=== PATIENT | male | born 1960 | race African-American/Black ===

== ENCOUNTER 2019-04-26 10:10 | Emergency (ER) | payer BC ==
[2019-04-26 10:18] VITALS: BP 138/78; PULSE 63; TEMP 98; BMI 26.5
[2019-04-26] MEDS ORDERED: IBUPROFEN 600 MG TABLET (FP) PO ONE ×2 (10:32)
--- NOTE | 2019-04-26 10:53 | PDOC ---
History of Present Illness - General Chief Complaint: Pain, Acute Stated Complaint: injury at work/lt.hip pain Time Seen by Provider: 04/26/19 10:20 History Source: Patient Exam Limitations: Clinical Condition - History of Present Illness Initial Comments: 04/26/19 10:47 Patient with no significant past medical history present with complaint of left lower rib cage pain status post accidentally hitting left side of the rib with a refrigerator door 2 days ago. Patient report pain when he pressed on the left side of lower rib cage or take deep breathing. Patient has not taken anything for pain. Denies shortness of breath, chest pain, vomiting. Patient also report had 1 blood tinged phlegm when he blew his nose a month ago and wants to make sure that is not a problem. Denies any nasal bleeds since then. Denies any other symptoms Is this a multiple visit Asthma Patient?: No Timing/Duration: other (2 days) Past History - Past Medical History Allergies/Adverse Reactions: Allergies Allergy/AdvReac Type Severity Reaction Status Date / Time No Allergy Information Allergy Verified 04/26/19 10:19 Available Home Medications: Ambulatory Orders Ibuprofen 600 mg PO Q8H PRN #20 tablet 04/26/19 COPD: No - Immunization History Immunization Up to Date: No - Psycho Social/Smoking Cessation Hx Smoking History: Never smoked Have you smoked in the past 12 months: No Information on smoking cessation initiated: No Hx Alcohol Use: No Drug/Substance Use Hx: No Review of Systems - Review of Systems Able to Perform ROS?: Yes Is the patient limited [place] proficient: No Constitutional: No: Chills, Fever HEENTM: Yes: Symptoms Reported, See HPI. No: Eye Pain, Blurred Vision, Tearing , Recent change in vision, Double Vision, Cataracts, Ear Pain, Ocular Prothesis , Ear Discharge, Nose Pain, Nose Congestion, Tinnitus, Nose Bleeding, Hearing Loss, Throat Pain, Throat Swelling, Mouth Pain, Dental Problems, Difficulty Swallowing, Mouth Swelling, Other Respiratory: No: Symptoms reported, See HPI, Cough, Orthopnea, Shortness of Breath, SOB with Exertion, SOB at Rest, Stridor, Wheezing, Productive cough, Hemoptysis, Other Cardiac (ROS): No: Symptoms Reported, See HPI, Chest Pain, Edema, Irregular Heart Rate, Lightheadedness, Palpitations, Syncope, Chest Tightness, Other ABD/GI: No: Symptoms Reported, Nausea, Vomiting Musculoskeletal: Yes: Symptoms Reported, See HPI, Muscle Pain (left lower ribcage pain) Integumentary: No: Symptoms Reported, See HPI, Bruising All Other Systems: Reviewed and Negative *Physical Exam - Vital Signs Last Vital Signs Temp Pulse Resp BP Pulse Ox 98.0 F 63 16 138/78 100 04/26/19 10:15 04/26/19 10:15 04/26/19 10:15 04/26/19 10:15 04/26/19 10:15 - Physical Exam 04/26/19 10:52 GENERAL: Well developed, well nourished. Awake and alert. No acute distress. CARDIOVASCULAR: Regular rate and rhythm. No murmurs, rubs, or gallops. PULMONARY: No evidence of respiratory distress. Lungs clear to auscultation bilaterally. No wheezing, rales or rhonchi. ABDOMINAL: Soft. Non-tender. Non-distended. No rebound or guarding. No organomegaly. Normoactive bowel sounds MUSCULOSKELETAL : Moderate tenderness lateral aspect of left lower rib cage. No visible deformity. No bruising or ecchymosis to skin of chest wall or abdominal wall SKIN: Warm and dry. Normal capillary refill. No bruising or ecchymosis to chest wall or abdominal wall. NEUROLOGICAL: Alert, awake, appropriate. No motor deficits in the lower extremities. Gait is normal without ataxia. PSYCHIATRIC: Cooperative. Good eye contact. Appropriate mood and affect. General Appearance: Yes: Nourished, Appropriately Dressed. No: Apparent Distress ED Treatment Course - RADIOLOGY Radiology Studies Ordered: Category Date Time Status RIBS-LEFT SIDE [RAD] Stat Radiology 04/26/19 10:32 Ordered - Medications Given in the ED: ED Medications Discontinued Medications Generic Name Dose Route Start Last Admin Trade Name Freq PRN Reason Stop Dose Admin Ibuprofen 600 mg 04/26/19 10:32 04/26/19 10:34 Motrin - PO 04/26/19 10:33 600 mg ONCE ONE Administration Medical Decision Making - Medical Decision Making 04/26/19 10:49 Patient with no significant past medical history present with complaint of left lower rib cage pain status post accidentally hitting left side of the rib with a refrigerator door 2 days ago. Patient report pain when he pressed on the left side of lower rib cage or take deep breathing. Patient has not taken anything for pain. Denies shortness of breath, chest pain, vomiting. Patient also report had 1 blood tinged phlegm when he blew his nose a month ago and wants to make sure that is not a problem. Denies any nasal bleeds since then. Denies any other symptoms Exam significant for moderate tenderness to left lateral lower rib cage with no visible ecchymosis or bruising to skin of abdominal or chest wall. Patient symptoms likely chest wall contusion. Motrin 60 mg p.o. ordered for pain. Rib series x-ray ordered to rule out acute abnormality 04/26/19 11:09 X-ray of left rib series read by radiologist report old fracture to 11th rib. Patient symptoms over lower 12 ribs and no tenderness to 11th rib. Patient does not recall any previous fracture to right. Patient will be discharged on NSAIDs for pain and advised to do hot compress with PCP follow-up Discharge - Discharge Information Problems reviewed: Yes Clinical Impression/Diagnosis: Contusion of rib on left side Qualifiers: Encounter type: initial encounter Qualified Code(s): S20.212A - Contusion of left front wall of thorax, initial encounter Condition: Stable Disposition: HOME - Admission No - Additional Discharge Information Prescriptions: Ibuprofen 600 mg PO Q8H PRN #20 tablet PRN Reason: pain - Follow up/Referral - Patient Discharge Instructions Patient Printed Discharge Instructions: DI for Rib Contusion Additional Instructions: X-ray shows old fracture 11th rib but shows no new fracture. Nothing needs to be done about old rib fracture. Your symptoms likely caused by muscle pain from contusion. Take prescribed Motrin as needed for pain. Apply hot compress to the area 2-3 times a day as needed for pain. Follow-up with your primary care - Post Discharge Activity
== END 2019-04-26 11:39 | disposition home or self-care (01) ==
LOC: JERFT 10:10
DX: S20.212A Contusion of left front wall of thorax, initial encounter (principal); W22.8XXA Striking against or struck by other objects, initial encounter; Y93.89 Activity, other specified; Y92.59 Other trade areas as the place of occurrence of the external cause; Y99.0 Civilian activity done for income or pay
CPT/HCPCS: 71101-TC-LT-FY; 99283-25